=== PATIENT | female | born 1930 | race African-American/Black ===

== ENCOUNTER 2016-10-19 15:57 | Inpatient (IN) | payer MEDICARE, OTHER ==
[~2016-10-19] VITALS: Ht 157.5 cm; Wt 97.5 kg
[2016-10-19 16:13] VITALS: BP 140/80
[2016-10-19 17:15] LABS: BASOPHILS % (AUTO) 1.8 % (0.0-2.0); LYMPHOCYTES % (AUTO) 31.4 % (20.0-45.0); MEAN CORPUSCULAR HEMOGLOBIN 33.4 PG (27.0-31.0); MEAN CORPUSCULAR HGB CONC 33.3 G/DL (32.0-36.0); MEAN CORPUSCULAR VOLUME 100 FL (80-99); MEAN PLATELET VOLUME 7.1 FL (6.5-10.1); MONOCYTES % (AUTO) 11.7 % (1.0-10.0); NEUTROPHILS % (AUTO) 51.1 % (45.0-75.0); PLATELET COUNT 169 K/UL (150-450); RED BLOOD COUNT 3.16 M/UL (4.20-5.40)
[2016-10-19] MEDS ORDERED: AMLODIPINE BESY10 MG ORAL (17:23)
[2016-10-19] MEDS ORDERED: LORAZEPAM2 MG/1 M4 ORAL (17:23)
[2016-10-19] MEDS ORDERED: VITAMIN D400 INTLU ORAL (17:23)
[2016-10-19] MEDS ORDERED: DOCUSATE SODIU100 MG ORAL (17:23)
[2016-10-19] MEDS ORDERED: ATENOLOL25 MG ORAL (17:23)
[2016-10-19] MEDS ORDERED: ATORVASTATIN CA20 MG ORAL (17:23)
[2016-10-19] MEDS ORDERED: ACETAMINOPHEN325 M1 ORAL (17:23)
[2016-10-19] MEDS ORDERED: TEMAZEPAM15 MG ORAL (17:23)
[2016-10-19] MEDS ORDERED: ASPIRIN325 MG ORAL (17:23)
[2016-10-19] MEDS ORDERED: OYSCO-500500 M1 PO (17:23)
[2016-10-19] MEDS ORDERED: PANTOPRAZOLE SO40 MG ORAL (17:23)
[2016-10-19] MEDS ORDERED: ALBUTEROL2.5 MG/3 M INH (17:23)
[2016-10-19] MEDS ORDERED: DIOVAN320 MG ORAL (17:23)
[2016-10-19 17:25] LABS: TROPONIN I < 0.30 ng/mL (<=0.30)
[2016-10-19 17:26] LABS: ALANINE AMINOTRANSFERASE 15 U/L (3-33); ALBUMIN/GLOBULIN RATIO 1.2 (1.0-2.7); ANION GAP 16 (5-15); ASPARTATE AMINO TRANSFERASE 25 U/L (5-40); CALCIUM 9.5 mg/dL (8.6-10.2); CARBON DIOXIDE 23 mEQ/L (20-30); CHLORIDE 100 mEQ/L (98-107); CREATININE 1.7 mg/dL (0.5-0.9); HEMOLYSIS 65; POTASSIUM 5.3 mEQ/L (3.4-4.9); SODIUM 139 mEQ/L (135-145); TOTAL PROTEIN 7.1 g/dL (6.6-8.7)
[2016-10-19 17:36] LABS: CKMB 5.4 ng/mL (< 3.8)
[2016-10-19] MEDS ORDERED: Miralax 17gm pkt ORAL PRN (18:15)
[2016-10-19] MEDS ORDERED: Mylanta II UD 30ml ORAL PRN (18:15)
[2016-10-19] MEDS ORDERED: Morphine Sulfate 2mg/ml Inj IVP PRN (19:30)
[2016-10-19] MEDS ORDERED: DuoNeb 0.5-3(2.5)mg/3ml neb HHN PRN (19:30)
[2016-10-19] MEDS ORDERED: Sodium Polystyrene Sulfonate 15gm Powder ORAL ONE (20:30)
[2016-10-19] MEDS ORDERED: Heparin 5000 units/ml inj SUBQ SCH (21:00)
[2016-10-19] MEDS: NovoLOG Insulin Flexpen SUBQ SCH (21:00)
[2016-10-19] MEDS: Atorvastatin 20mg tab ORAL SCH (22:14)
--- NOTE | 2016-10-19 22:42 | Emergency Room Report ---
History of Present Illness General Chief Complaint: Chest Pain Source: Patient Present Illness HPI 86-year-old female presents to ED for evaluation. Per EMS report patient noted she chest pain x1 day. Patient resides in a [id number]. Patient denies any chest pain. Denies any shortness of breath. I spoke to PMD Dr. Oviedo who said that patient is here for increasing weakness and failure to thrive. Patient has very reduced appetite is not eating or drinking. No reported fevers or chills. No other aggravating or leading factors. No other associated symptoms Allergies: Coded Allergies: No Known Allergies (Verified Allergy, Unknown, 09/08/09) Patient History Past Medical History: DM, HTN Past Surgical History: none Pertinent Family History: none Social History: Denies: alcohol use, drug use, smoking Now: No Immunizations: UTD Reviewed Nursing Documentation: PMH: Agreed, PSxH: Agreed Nursing Documentation-PMH Hx Cardiac Problems: Yes Hx Hypertension: Yes Hx Pacemaker: No Hx Asthma: No Hx COPD: No Hx Diabetes: Yes Hx Cancer: No Hx Gastrointestinal Problems: No Hx Dialysis: No History Of Psychiatric Problem: No Hx Neurological Problems: No Hx Cerebrovascular Accident: No Hx Seizures: No Review of Systems All Other Systems: negative except mentioned in HPI Physical Exam Vital Signs Date Time Temp Pulse Resp B/P Pulse Ox O2 Delivery O2 Flow Rate FiO2 10/19/16 16:04 97.9 72 16 140/80 97 Room Air Sp02 EP Interpretation: reviewed, normal General Appearance: no apparent distress, non-toxic, other - dementia Head: normocephalic, atraumatic Eyes: bilateral eye PERRL, bilateral eye normal inspection ENT: hearing grossly normal, normal pharynx, no angioedema, normal voice Neck: full range of motion, supple/symm/no masses Respiratory: chest non-tender, lungs clear, normal breath sounds, speaking full sentences Cardiovascular #1: regular rate, rhythm, no edema Cardiovascular #2: 2+ carotid (R), 2+ carotid (L), 2+ radial (R), 2+ radial (L) , 2+ dorsalis pedis (R), 2+ dorsalis pedis (L) Gastrointestinal: normal bowel sounds, non tender, soft, non-distended, no guarding, no rebound Rectal: deferred Genitourinary: normal inspection, no CVA tenderness Musculoskeletal: back normal, gait/station normal, normal range of motion, non- tender, calf tenderness Neurologic: responsive, motor strength/tone normal, sensory intact, speech normal, other - dementia Psychiatric: other - dementia Reflexes: 3+ bicep (R), 3+ bicep (L), 3+ tricep (R), 3+ tricep (L), 3+ knee (R) , 3+ knee (L) Skin: normal color, no rash, warm/dry, well hydrated Lymphatic: no adenopathy Medical Decision Making Diagnostic Impression: Primary Impression: weakness, FTT Additional Impressions: ARF (acute renal failure) Qualified Codes: N17.9 - Acute kidney failure, unspecified Dehydration ER Course Hospital Course 86-year-old female presenting to ED with generalized weakness, h/o dementia Differential diagnoses include: Pneumonia, UTI, sepsis, dehydration, VT/ unstable angina, failure to thrive Clinical course Patient placed on stretcher. On substance abuse clinician with tachycardia. After initial history and physical, I ordered labs, IV fluids, EKG, chest x-ray, blood cultures, UA. Labs - no leukocytosis, hb/hct stable, BUN/Cr elevated, K 5.3, trop negative EKG - PACS, no acute ischemic changes CXR - no acute process, cardiomegaly Patient has dementia. Patient got out of bed and fell. Unwitnessed. Unclear patient hit her head CT head negative Case discussed with Dr Oviedo and they agreed to admit patient to their service for further care and support I feel this is a highly complex case requiring extensive working including EKG/ Rhythm strip, Xray/CT/US, Blood/urine lab work, repeat exams while in ED, and administration of strong opiates/narcotics for pain control, admission to hospital or close patient follow up. Diagnosis - failure to thrive, weakness, ARF, dehydration Patient admitted to floor in serious condition Labs Test 10/19/16 16:30 White Blood Count 5.0 K/UL (4.8-10.8) Red Blood Count 3.16 M/UL (4.20-5.40) Hemoglobin 10.6 G/DL (12.0-16.0) Hematocrit 31.7 % (37.0-47.0) Mean Corpuscular Volume 100 FL (80-99) Mean Corpuscular Hemoglobin 33.4 PG (27.0-31.0) Mean Corpuscular Hemoglobin Concent 33.3 G/DL (32.0-36.0) Red Cell Distribution Width 13.0 % (11.6-14.8) Platelet Count 169 K/UL (150-450) Mean Platelet Volume 7.1 FL (6.5-10.1) Neutrophils (%) (Auto) 51.1 % (45.0-75.0) Lymphocytes (%) (Auto) 31.4 % (20.0-45.0) Monocytes (%) (Auto) 11.7 % (1.0-10.0) Eosinophils (%) (Auto) 4.0 % (0.0-3.0) Basophils (%) (Auto) 1.8 % (0.0-2.0) Sodium Level 139 mEQ/L (135-145) Potassium Level 5.3 mEQ/L (3.4-4.9) Chloride Level 100 mEQ/L (98-107) Carbon Dioxide Level 23 mEQ/L (20-30) Anion Gap 16 (5-15) Blood Urea Nitrogen 41 mg/dL (7-23) Creatinine 1.7 mg/dL (0.5-0.9) Estimat Glomerular Filtration Rate mL/min (>60) Glucose Level 102 mg/dL (74-106) Calcium Level 9.5 mg/dL (8.6-10.2) Total Bilirubin < 0.2 mg/dL (0.0-1.2) Aspartate Amino Transf (AST/SGOT) 25 U/L (5-40) Alanine Aminotransferase (ALT/SGPT) 15 U/L (3-33) Alkaline Phosphatase 56 U/L (35-104) Total Creatine Kinase 170 U/L (26-140) Creatine Kinase MB 5.4 ng/mL (< 3.8) Creatine Kinase MB Relative Index 3.1 Troponin I < 0.30 ng/mL (<=0.30) Pro-B-Type Natriuretic Peptide 325 pg/mL (0-450) Total Protein 7.1 g/dL (6.6-8.7) Albumin 3.9 g/dL (3.5-5.2) Globulin 3.2 g/dL Albumin/Globulin Ratio 1.2 (1.0-2.7) EKG Diagnostic Results Rate: normal Rhythm: NSR ST Segments: other - bigeminy ASA given to the pt in ED: No Rhythm Strip Diag. Results EP Interpretation: yes Rhythm: NSR, no ectopy, other - PACs Chest X-Ray Diagnostic Results EP Interpretation: No Findings: no consolidation, no effusion, no pneumothorax, no acute cardiopulmonary disease, other - cardiomegaly Number of Views: 1 CT/MRI/US Diagnostic Results CT/MRI/US Diagnostic Results : Imaging Test Ordered: CT Head Impression no acute process Last Vital Signs Date Time Temp Pulse Resp B/P Pulse Ox O2 Delivery O2 Flow Rate FiO2 10/19/16 19:13 97.9 16 168/61 97 Room Air 10/19/16 16:13 72 Status: improved Disposition: ADMITTED INPATIENT Condition: Serious Referrals: ANTON OVIEDO (PCP) SAIMA GARCIA M.D. October 19, 2016 22:41
[2016-10-20] VITALS: BP 153/83
[2016-10-20] MEDS: Zolpidem 5mg tab ORAL PRN (02:08)
[2016-10-20 04:00] VITALS: BP 155/61
[2016-10-20] MEDS: NovoLOG Insulin Flexpen SUBQ SCH ×4 (06:20→21:00)
[2016-10-20 07:12] LABS: BASOPHILS % (AUTO) 1.9 % (0.0-2.0); EOSINOPHILS % (AUTO) 4.8 % (0.0-3.0); LYMPHOCYTES % (AUTO) 26.9 % (20.0-45.0); MEAN CORPUSCULAR HEMOGLOBIN 31.8 PG (27.0-31.0); MEAN CORPUSCULAR HGB CONC 32.1 G/DL (32.0-36.0); MEAN CORPUSCULAR VOLUME 99 FL (80-99); MEAN PLATELET VOLUME 9.5 FL (6.5-10.1); MONOCYTES % (AUTO) 13.4 % (1.0-10.0); PLATELET COUNT 181 K/UL (150-450); RED BLOOD COUNT 3.01 M/UL (4.20-5.40); RED CELL DISTRIBUTION WIDTH 12.7 % (11.6-14.8)
[2016-10-20 07:47] LABS: HEMOGLOBIN A1C 5.9 % (< 6.0)
[2016-10-20 08:00] VITALS: BP 150/61
[2016-10-20 08:12] LABS: ALANINE AMINOTRANSFERASE 15 U/L (3-33); ALBUMIN/GLOBULIN RATIO 1.3 (1.0-2.7); ANION GAP 14 (5-15); ASPARTATE AMINO TRANSFERASE 20 U/L (5-40); CALCIUM 9.3 mg/dL (8.6-10.2); CARBON DIOXIDE 25 mEQ/L (20-30); CHLORIDE 101 mEQ/L (98-107); CHOLESTEROL 244 mg/dL (< 200); CHOLESTEROL/HDL RATIO 2.6 (3.3-4.4); CREATININE 1.4 mg/dL (0.5-0.9); HEMOLYSIS 4; LDL CHOLESTEROL (CALC.) 138 mg/dL (60-99); POTASSIUM 4.1 mEQ/L (3.4-4.9); SODIUM 140 mEQ/L (135-145); TOTAL PROTEIN 6.5 g/dL (6.6-8.7)
--- NOTE | 2016-10-20 11:26 | Diagnostic Imaging Report ---
Indication: Headache. Head Trauma Technique: Contiguous 5 mm thick transaxial imaging of the head obtained in a Siemens Sensation [address] scanner. Soft tissue and bone windows generated. Total Dose length Product (DLP): [address] Dose Index Volume (CTDIvol): 70.38 mGy Comparison: none Findings: There is mild prominence of the ventricles, basal cisterns, and cerebral sulci consistent with atrophy. Mild, nonspecific, white matter hypoattenuation is noted throughout the brain consistent with chronic small vessel disease. There is no midline shift, edema, acute hemorrhage, mass effect, or abnormal extra-axial fluid collections. Bones and extra osseous soft tissues are unremarkable. Impression: No acute intracranial bleed, mass effect or edema. Mild atrophy of the brain. Nonspecific white matter hypoattenuation probably due to chronic small vessel disease. The CT scanner at [facility] is accredited by the [employer] and the scans are performed using dose optimization techniques as appropriate to a performed exam including Automatic Exposure control.
--- NOTE | 2016-10-20 11:28 | Diagnostic Imaging Report ---
Indications: Chest pain Technique: Portable AP chest Findings: Comparison: 10/10/2010 Inspiratory effort has decreased. Size of the cardiac silhouette has apparently increased. Mild pulmonary vascular redistribution and bilateral interstitial prominence now suggested. No pleural abnormality evident. Aortic arch calcification unchanged. IMPRESSION: Findings suggest development of mild congestive heart failure. Some of these changes may be technical, however.
[2016-10-20 12:00] VITALS: BP 141/80
--- NOTE | 2016-10-20 14:59 | History and Physical ---
History of Present Illness General Date patient seen: October 20, 2016 Reason for Hospitalization: Chest Pain Present Illness HPI 86-year-old female with hx of schizophrenia, Dementia, DM presents to ED for evaluation of increasing weakness and failure to thrive. Patient has very reduced appetite is not eating or drinking. No reported fevers or chills. No other aggravating or leading factors. she was diagnosed to have acute renal failure and anemia and admitted for further evaluation. Allergies: Coded Allergies: No Known Allergies (Verified Allergy, Unknown, 09/08/09) Medication History Scheduled Amlodipine Besylate* (Amlodipine Besylate*), 10 MG ORAL DAILY, (Reported) Aspirin* (Aspirin*), 325 MG ORAL DAILY, (Reported) Atenolol* (Tenormin*), 25 MG ORAL DAILY, (Reported) Atorvastatin Calcium* (Atorvastatin Calcium*), 20 MG ORAL BEDTIME, (Reported) Docusate Sodium* (Docusate Sodium*), 100 MG ORAL THREE TIMES A DAY, (Reported) Lorazepam (Lorazepam), 1 MG ORAL THREE TIMES A DAY, (Reported) Pantoprazole* (Pantoprazole*), 40 MG ORAL DAILY, (Reported) Temazepam (Temazepam*), 15 MG ORAL BEDTIME, (Reported) Valsartan (Diovan), 320 MG ORAL DAILY, (Reported) Vitamin D (Vitamin D3), 400 UNITS ORAL DAILY, (Reported) Scheduled PRN Acetaminophen* (Acetaminophen 325MG Tablet*), 650 MG ORAL Q4H PRN for For Pain, (Reported) Albuterol Sulfate* (Albuterol Sulfate Hhn*), 3 ML INH Q4H PRN for Shortness of Breath, (Reported) Miscellaneous Medications Calcium Carbonate (Oysco-500), 500 MG PO, (Reported) Patient History Healthcare decision maker pt A&Ox1 Resuscitation status Full Code Advanced Directive on File Past Medical/Surgical History Past Medical/Surgical History: (1) Dementia (2) Schizophrenia (3) Diabetes Review of Systems All Other Systems: negative except mentioned in HPI Physical Exam General Appearance: WD/WN Lines, tubes and drains: peripheral HEENT: normocephalic, atraumatic Neck: non-tender, normal alignment Respiratory/Chest: chest wall non-tender, lungs clear Cardiovascular/Chest: normal peripheral pulses, normal rate Abdomen: normal bowel sounds, non tender Genitourinary/Rectal: normal genital exam Extremities: normal range of motion, non-tender Neurologic: peripheral vascular tech II-XII grossly normal Last 24 Hour Vital Signs Date Time Temp Pulse Resp B/P Pulse Ox O2 Delivery O2 Flow Rate FiO2 10/20/16 12:00 98.2 62 18 141/80 98 Room Air 10/20/16 11:00 57 150/61 10/20/16 08:00 98.1 57 18 150/61 93 Room Air 10/20/16 07:00 60 18 Room Air 10/20/16 04:01 95 10/20/16 04:00 98.2 64 18 155/61 Room Air 10/20/16 00:00 97.7 63 17 153/83 85 Room Air 10/19/16 19:13 97.9 16 168/61 97 Room Air 10/19/16 16:13 72 16 Room Air 10/19/16 16:13 97.9 16 140/80 97 Room Air 10/19/16 16:04 97.9 72 16 140/80 97 Room Air Intake and Output 10/19/16 10/20/16 19:00 07:00 Intake Total 0 ml 675 ml Balance 0 ml 675 ml Intake Oral 0 ml IV Total 675 ml # Voids 4 Laboratory Tests Test 10/19/16 16:30 10/20/16 05:15 White Blood Count 5.0 K/UL (4.8-10.8) 4.0 K/UL (4.8-10.8) L Red Blood Count 3.16 M/UL (4.20-5.40) L 3.01 M/UL (4.20-5.40) L Hemoglobin 10.6 G/DL (12.0-16.0) L 9.6 G/DL (12.0-16.0) L Hematocrit 31.7 % (37.0-47.0) L 29.8 % (37.0-47.0) L Mean Corpuscular Volume 100 FL (80-99) H 99 FL (80-99) Mean Corpuscular Hemoglobin 33.4 PG (27.0-31.0) H 31.8 PG (27.0-31.0) H Mean Corpuscular Hemoglobin Concent 33.3 G/DL (32.0-36.0) 32.1 G/DL (32.0-36.0) Red Cell Distribution Width 13.0 % (11.6-14.8) 12.7 % (11.6-14.8) Platelet Count 169 K/UL (150-450) 181 K/UL (150-450) Mean Platelet Volume 7.1 FL (6.5-10.1) 9.5 FL (6.5-10.1) Neutrophils (%) (Auto) 51.1 % (45.0-75.0) 53.0 % (45.0-75.0) Lymphocytes (%) (Auto) 31.4 % (20.0-45.0) 26.9 % (20.0-45.0) Monocytes (%) (Auto) 11.7 % (1.0-10.0) H 13.4 % (1.0-10.0) H Eosinophils (%) (Auto) 4.0 % (0.0-3.0) H 4.8 % (0.0-3.0) H Basophils (%) (Auto) 1.8 % (0.0-2.0) 1.9 % (0.0-2.0) Sodium Level 139 mEQ/L (135-145) 140 mEQ/L (135-145) Potassium Level 5.3 mEQ/L (3.4-4.9) H 4.1 mEQ/L (3.4-4.9) Chloride Level 100 mEQ/L (98-107) 101 mEQ/L (98-107) Carbon Dioxide Level 23 mEQ/L (20-30) 25 mEQ/L (20-30) Anion Gap 16 (5-15) H 14 (5-15) Blood Urea Nitrogen 41 mg/dL (7-23) H 28 mg/dL (7-23) H Creatinine 1.7 mg/dL (0.5-0.9) H 1.4 mg/dL (0.5-0.9) H Estimat Glomerular Filtration Rate mL/min (>60) mL/min (>60) Glucose Level 102 mg/dL (74-106) 93 mg/dL (74-106) Calcium Level 9.5 mg/dL (8.6-10.2) 9.3 mg/dL (8.6-10.2) Total Bilirubin < 0.2 mg/dL (0.0-1.2) 0.2 mg/dL (0.0-1.2) Aspartate Amino Transf (AST/SGOT) 25 U/L (5-40) 20 U/L (5-40) Alanine Aminotransferase (ALT/SGPT) 15 U/L (3-33) 15 U/L (3-33) Alkaline Phosphatase 56 U/L (35-104) 55 U/L (35-104) Total Creatine Kinase 170 U/L (26-140) H Creatine Kinase MB 5.4 ng/mL (< 3.8) H Creatine Kinase MB Relative Index 3.1 Troponin I < 0.30 ng/mL (<=0.30) Pro-B-Type Natriuretic Peptide 325 pg/mL (0-450) Total Protein 7.1 g/dL (6.6-8.7) 6.5 g/dL (6.6-8.7) L Albumin 3.9 g/dL (3.5-5.2) 3.7 g/dL (3.5-5.2) Globulin 3.2 g/dL 2.8 g/dL Albumin/Globulin Ratio 1.2 (1.0-2.7) 1.3 (1.0-2.7) Hemoglobin A1c 5.9 % (< 6.0) Triglycerides Level 62 mg/dL (< 150) Cholesterol Level 244 mg/dL (< 200) H LDL Cholesterol 138 mg/dL (60-99) H HDL Cholesterol 94 mg/dL (> 60) H Cholesterol/HDL Ratio 2.6 (3.3-4.4) L Thyroid Stimulating Hormone (TSH) 1.110 uIU/mL (0.300-4.500) Height (Feet): 5 Height (Inches): 2.00 Weight (Pounds): 215 Medications Current Medications Medications (Trade) Dose Ordered Sig/Pierre Route PRN Reason Start Time Stop Time Status Last Admin Dose Admin Acetaminophen (Tylenol) 650 mg Q4H PRN ORAL fever 10/19/16 18:15 11/18/16 18:14 Al Hydroxide/Mg Hydroxide (Mylanta II) 30 ml Q6H PRN ORAL dyspepsia 10/19/16 18:15 11/18/16 18:14 Albuterol/ Ipratropium (DuoNeb 0.5-3(2.5)mg/3ml) 3 ml Q6H PRN HHN dyspnea 10/19/16 19:30 10/24/16 19:29 Amlodipine Besylate (Norvasc) 10 mg DAILY ORAL 10/20/16 09:00 11/19/16 08:59 10/20/16 11:00 Aspirin (ASA) 325 mg DAILY ORAL 10/20/16 09:00 11/19/16 08:59 10/20/16 11:00 Atorvastatin Calcium (Lipitor) 20 mg BEDTIME ORAL 10/19/16 21:00 11/18/16 20:59 10/19/16 22:14 Calcium Carbonate (Os-Giovany) 1,250 mg DAILY ORAL 10/20/16 09:00 11/19/16 08:59 10/20/16 11:00 Clonidine HCl (Catapres) 0.1 mg Q4H PRN ORAL SBP > 160 10/19/16 18:15 11/18/16 18:14 Dextrose (Dextrose 50%) STAT PRN IV Hypoglycemia 10/19/16 18:15 11/18/16 18:14 Heparin Sodium (Porcine) (Heparin 5000 units/ml) 5,000 units EVERY 12 HOURS SUBQ 10/19/16 21:00 11/18/16 20:59 Future Hold Insulin Aspart (NovoLOG) BEFORE MEALS AND HS SUBQ 10/19/16 21:00 11/18/16 20:59 Morphine Sulfate (Morphine Sulfate) 1 mg Q4H PRN IVP For Pain 10/19/16 19:30 10/26/16 19:29 Ondansetron HCl (Zofran) 4 mg Q6H PRN IVP Nausea & Vomiting 10/19/16 18:15 11/18/16 18:14 Polyethylene Glycol (Miralax) 17 gm HSPRN PRN ORAL Constipation 10/19/16 18:15 11/18/16 18:14 Risperidone (RisperDAL) 1 mg Q6H PRN ORAL Agitation 10/19/16 21:15 11/18/16 21:14 Risperidone (RisperDAL) 2 mg BEDTIME ORAL 10/20/16 22:00 11/19/16 21:59 Zolpidem Tartrate (Ambien) 5 mg HSPRN PRN ORAL Insomnia 10/19/16 18:15 11/18/16 18:14 10/20/16 02:08 Assessment/Plan Problem List: (1) ATN (acute tubular necrosis) ICD Codes: N17.0 - Acute kidney failure with tubular necrosis SNOMED: 52406835 (2) Severe anemia ICD Codes: D64.9 - Anemia, unspecified SNOMED: 458151874 (3) Dementia ICD Codes: F03.90 - Unspecified dementia without behavioral disturbance SNOMED: 14578118 (4) Diabetes ICD Codes: E11.9 - Type 2 diabetes mellitus without complications SNOMED: 29943426 (5) Schizophrenia ICD Codes: F20.9 - Schizophrenia, unspecified SNOMED: 73268309 Assessment/Plan IV fluids renal evaluation anemia w/u pt/ot calorie count psych evaluation ANTON BYRD October 20, 2016 14:59
[2016-10-20 16:00] VITALS: BP 141/53
--- NOTE | 2016-10-20 17:57 | Neurology Progress Note ---
Interim History Interim History ROS Limited/Unobtainable: Yes Objective Physical Exam Last Vital Signs Date Time Temp Pulse Resp B/P Pulse Ox O2 Delivery O2 Flow Rate FiO2 10/20/16 16:00 98.4 64 18 141/53 99 Room Air Laboratory Tests Test 10/20/16 05:15 White Blood Count 4.0 K/UL (4.8-10.8) L Red Blood Count 3.01 M/UL (4.20-5.40) L Hemoglobin 9.6 G/DL (12.0-16.0) L Hematocrit 29.8 % (37.0-47.0) L Mean Corpuscular Volume 99 FL (80-99) Mean Corpuscular Hemoglobin 31.8 PG (27.0-31.0) H Mean Corpuscular Hemoglobin Concent 32.1 G/DL (32.0-36.0) Red Cell Distribution Width 12.7 % (11.6-14.8) Platelet Count 181 K/UL (150-450) Mean Platelet Volume 9.5 FL (6.5-10.1) Neutrophils (%) (Auto) 53.0 % (45.0-75.0) Lymphocytes (%) (Auto) 26.9 % (20.0-45.0) Monocytes (%) (Auto) 13.4 % (1.0-10.0) H Eosinophils (%) (Auto) 4.8 % (0.0-3.0) H Basophils (%) (Auto) 1.9 % (0.0-2.0) Sodium Level 140 mEQ/L (135-145) Potassium Level 4.1 mEQ/L (3.4-4.9) Chloride Level 101 mEQ/L (98-107) Carbon Dioxide Level 25 mEQ/L (20-30) Anion Gap 14 (5-15) Blood Urea Nitrogen 28 mg/dL (7-23) H Creatinine 1.4 mg/dL (0.5-0.9) H Estimat Glomerular Filtration Rate mL/min (>60) Glucose Level 93 mg/dL (74-106) Hemoglobin A1c 5.9 % (< 6.0) Calcium Level 9.3 mg/dL (8.6-10.2) Total Bilirubin 0.2 mg/dL (0.0-1.2) Aspartate Amino Transf (AST/SGOT) 20 U/L (5-40) Alanine Aminotransferase (ALT/SGPT) 15 U/L (3-33) Alkaline Phosphatase 55 U/L (35-104) Total Protein 6.5 g/dL (6.6-8.7) L Albumin 3.7 g/dL (3.5-5.2) Globulin 2.8 g/dL Albumin/Globulin Ratio 1.3 (1.0-2.7) Triglycerides Level 62 mg/dL (< 150) Cholesterol Level 244 mg/dL (< 200) H LDL Cholesterol 138 mg/dL (60-99) H HDL Cholesterol 94 mg/dL (> 60) H Cholesterol/HDL Ratio 2.6 (3.3-4.4) L Thyroid Stimulating Hormone (TSH) 1.110 uIU/mL (0.300-4.500) Impression/Recommendations Problems: (1) Dementia arising in the senium and presenium (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
[2016-10-20 19:24] VITALS: BP 154/61
[2016-10-20] MEDS: Atorvastatin 20mg tab ORAL SCH (21:30)
--- NOTE | 2016-10-20 23:00 | Consultation ---
History of Present Illness General Chief Complaint: Chest Pain Present Illness HPI 86-year-old female with hx of schizophrenia, Dementia, DM presents to ED for evaluation of increasing weakness and failure to thrive. im well familiar with this pt the pt is declined and is more disorganized and agitated. Allergies: Coded Allergies: No Known Allergies (Verified Allergy, Unknown, 09/08/09) Medication History Scheduled Amlodipine Besylate* (Amlodipine Besylate*), 10 MG ORAL DAILY, (Reported) Aspirin* (Aspirin*), 325 MG ORAL DAILY, (Reported) Atenolol* (Tenormin*), 25 MG ORAL DAILY, (Reported) Atorvastatin Calcium* (Atorvastatin Calcium*), 20 MG ORAL BEDTIME, (Reported) Docusate Sodium* (Docusate Sodium*), 100 MG ORAL THREE TIMES A DAY, (Reported) Lorazepam (Lorazepam), 1 MG ORAL THREE TIMES A DAY, (Reported) Pantoprazole* (Pantoprazole*), 40 MG ORAL DAILY, (Reported) Temazepam (Temazepam*), 15 MG ORAL BEDTIME, (Reported) Valsartan (Diovan), 320 MG ORAL DAILY, (Reported) Vitamin D (Vitamin D3), 400 UNITS ORAL DAILY, (Reported) Scheduled PRN Acetaminophen* (Acetaminophen 325MG Tablet*), 650 MG ORAL Q4H PRN for For Pain, (Reported) Albuterol Sulfate* (Albuterol Sulfate Hhn*), 3 ML INH Q4H PRN for Shortness of Breath, (Reported) Miscellaneous Medications Calcium Carbonate (Oysco-500), 500 MG PO, (Reported) Patient History Limited by: medical condition History Provided By: Patient, Medical Record, PMD Healthcare decision maker pt A&Ox1 Resuscitation status Full Code Advanced Directive on File Past Medical/Surgical History Past Medical/Surgical History: (1) Dehydration (2) ARF (acute renal failure) (3) Dementia (4) Diabetes (5) Schizophrenia (6) ATN (acute tubular necrosis) (7) Severe anemia (8) Dementia arising in the senium and presenium (9) Gait apraxia of elderly Review of Systems Constitutional: Reports: weakness Psychiatric: Reports: anxiety, depressed feelings, emotional problems, hallucinations, prior hx Physical Exam General Appearance: alert, confused, agitated Neurologic: alert, disoriented, depressed affect Last 24 Hour Vital Signs Date Time Temp Pulse Resp B/P Pulse Ox O2 Delivery O2 Flow Rate FiO2 10/20/16 20:40 75 18 Room Air 10/20/16 19:24 98.2 64 19 154/61 92 Room Air 10/20/16 16:00 98.4 64 18 141/53 99 Room Air 10/20/16 12:00 98.2 62 18 141/80 98 Room Air 10/20/16 11:00 57 150/61 10/20/16 08:00 98.1 57 18 150/61 93 Room Air 10/20/16 07:00 60 18 Room Air 10/20/16 04:01 95 10/20/16 04:00 98.2 64 18 155/61 Room Air 10/20/16 00:00 97.7 63 17 153/83 85 Room Air Intake and Output 10/19/16 10/20/16 19:00 07:00 Intake Total 0 ml 675 ml Balance 0 ml 675 ml Intake Oral 0 ml IV Total 675 ml # Voids 4 Laboratory Tests Test 10/20/16 05:15 White Blood Count 4.0 K/UL (4.8-10.8) L Red Blood Count 3.01 M/UL (4.20-5.40) L Hemoglobin 9.6 G/DL (12.0-16.0) L Hematocrit 29.8 % (37.0-47.0) L Mean Corpuscular Volume 99 FL (80-99) Mean Corpuscular Hemoglobin 31.8 PG (27.0-31.0) H Mean Corpuscular Hemoglobin Concent 32.1 G/DL (32.0-36.0) Red Cell Distribution Width 12.7 % (11.6-14.8) Platelet Count 181 K/UL (150-450) Mean Platelet Volume 9.5 FL (6.5-10.1) Neutrophils (%) (Auto) 53.0 % (45.0-75.0) Lymphocytes (%) (Auto) 26.9 % (20.0-45.0) Monocytes (%) (Auto) 13.4 % (1.0-10.0) H Eosinophils (%) (Auto) 4.8 % (0.0-3.0) H Basophils (%) (Auto) 1.9 % (0.0-2.0) Sodium Level 140 mEQ/L (135-145) Potassium Level 4.1 mEQ/L (3.4-4.9) Chloride Level 101 mEQ/L (98-107) Carbon Dioxide Level 25 mEQ/L (20-30) Anion Gap 14 (5-15) Blood Urea Nitrogen 28 mg/dL (7-23) H Creatinine 1.4 mg/dL (0.5-0.9) H Estimat Glomerular Filtration Rate mL/min (>60) Glucose Level 93 mg/dL (74-106) Hemoglobin A1c 5.9 % (< 6.0) Calcium Level 9.3 mg/dL (8.6-10.2) Total Bilirubin 0.2 mg/dL (0.0-1.2) Aspartate Amino Transf (AST/SGOT) 20 U/L (5-40) Alanine Aminotransferase (ALT/SGPT) 15 U/L (3-33) Alkaline Phosphatase 55 U/L (35-104) Total Protein 6.5 g/dL (6.6-8.7) L Albumin 3.7 g/dL (3.5-5.2) Globulin 2.8 g/dL Albumin/Globulin Ratio 1.3 (1.0-2.7) Triglycerides Level 62 mg/dL (< 150) Cholesterol Level 244 mg/dL (< 200) H LDL Cholesterol 138 mg/dL (60-99) H HDL Cholesterol 94 mg/dL (> 60) H Cholesterol/HDL Ratio 2.6 (3.3-4.4) L Thyroid Stimulating Hormone (TSH) 1.110 uIU/mL (0.300-4.500) Height (Feet): 5 Height (Inches): 2.00 Weight (Pounds): 215 Medications Current Medications Medications (Trade) Dose Ordered Sig/Pierre Route PRN Reason Start Time Stop Time Status Last Admin Dose Admin Acetaminophen (Tylenol) 650 mg Q4H PRN ORAL fever 10/19/16 18:15 6 18:14 Al Hydroxide/Mg Hydroxide (Mylanta II) 30 ml Q6H PRN ORAL dyspepsia 10/19/16 18:15 617 18:14 Albuterol/ Ipratropium (DuoNeb 0.5-3(2.5)mg/3ml) 3 ml Q6H PRN HHN dyspnea 10/19/16 19:30 10/24/16 19:29 Amlodipine Besylate (Norvasc) 10 mg DAILY ORAL 10/20/16 09:00 11/19/16 08:59 10/20/16 11:00 Aspirin (ASA) 325 mg DAILY ORAL 10/20/16 09:00 11/19/16 08:59 10/20/16 11:00 Atorvastatin Calcium (Lipitor) 20 mg BEDTIME ORAL 10/19/16 21:00 11/18/16 20:59 10/20/16 21:30 Calcium Carbonate (Os-Giovany) 1,250 mg DAILY ORAL 10/20/16 09:00 11/19/16 08:59 10/20/16 11:00 Clonidine HCl (Catapres) 0.1 mg Q4H PRN ORAL SBP > 160 10/19/16 18:15 11/18/16 18:14 Dextrose (Dextrose 50%) STAT PRN IV Hypoglycemia 10/19/16 18:15 11/18/16 18:14 Heparin Sodium (Porcine) (Heparin 5000 units/ml) 5,000 units EVERY 12 HOURS SUBQ 10/19/16 21:00 11/18/16 20:59 Future Hold Insulin Aspart (NovoLOG) BEFORE MEALS AND HS SUBQ 10/19/16 21:00 11/18/16 20:59 10/20/16 17:49 Morphine Sulfate (Morphine Sulfate) 1 mg Q4H PRN IVP For Pain 10/19/16 19:30 10/26/16 19:29 Ondansetron HCl (Zofran) 4 mg Q6H PRN IVP Nausea & Vomiting 10/19/16 18:15 11/18/16 18:14 Polyethylene Glycol (Miralax) 17 gm HSPRN PRN ORAL Constipation 10/19/16 18:15 11/18/16 18:14 Risperidone (RisperDAL) 1 mg Q6H PRN ORAL Agitation 10/19/16 21:15 11/18/16 21:14 Risperidone (RisperDAL) 2 mg BEDTIME ORAL 10/20/16 22:00 11/19/16 21:59 10/20/16 21:28 Zolpidem Tartrate (Ambien) 5 mg HSPRN PRN ORAL Insomnia 10/19/16 18:15 11/18/16 18:14 10/20/16 02:08 Assessment/Plan Status: not improved Assessment/Plan Schizophrenia -risperdal 2mg hs -risperdal Fan Starks M.D. October 20, 2016 23:00
--- NOTE | 2016-10-21 00:01 | Consultation ---
DATE OF CONSULTATION: 10/20/2016 NEUROLOGICAL CONSULTATION REQUESTING PHYSICIAN: Lalito Oviedo M.D. HISTORY OF PRESENT ILLNESS: The patient is an 86-year-old female, resident of assisted living facility, who was brought to this hospital for progressive difficulty in ambulation, generalized weakness, and failure to thrive. On admission, her vital signs were stable. She was afebrile. Her initial assessment included CAT scan of the brain without contrast, which revealed a mild diffuse atrophy, nonspecific white matter hypoattenuation due to chronic small vessel disease. Chest x-ray, mild CHF. Laboratory work included a CBC study with hemoglobin 10.6, hematocrit 31.7, elevated MCV and MCH. Chemistry panel, abnormal cholesterol 244, LDL 138, CK 170, CK-MB 5.4, and creatinine 1.7 with BUN of 41, and potassium 5.3. Since admission till present, there was no paroxysmal event. The patient remained in stable condition. PAST MEDICAL HISTORY: The patient has a history of senile dementia, chronic renal failure, chronic anemia, history of hyperlipidemia. MEDICATIONS: The patient's treatment included amlodipine, aspirin, atenolol, atorvastatin, lorazepam, pantoprazole, temazepam, losartan, vitamin D level, as needed Tylenol or albuterol. ALLERGIES: Not reported. SOCIAL HISTORY: Resident of a nursing facility. FAMILY HISTORY: Unavailable. REVIEW OF SYMPTOMS: The patient is unaware of any medical problems. She is unable to describe the reason for hospitalization. PHYSICAL EXAMINATION: GENERAL: Well-developed, well-nourished, elderly female, not in acute distress, lying comfortably in bed asleep, but easily arousable. VITAL SIGNS: Blood pressure 138/90 and respirations 18. HEENT: Head, normocephalic. No evidence of injuries. Eyes, ears, and throat are clear. NECK: Supple. No meningeal signs. MUSCULOSKELETAL EXAMINATION: Unremarkable with no deformities. Peripheral pulses 1+ symmetric. MENTAL STATUS: The patient is alert and oriented to her name only stating her age is 62, and she lives here. She has no recollection of any medical problems, but pleasant and cooperative. CRANIAL NERVE II: Pupils are both responding to light and accommodation. Extraocular movement intact. No nystagmus. CRANIAL NERVE V: Normal corneal responses. CRANIAL NERVE VII: No facial asymmetry. CRANIAL NERVE VIII: Slight decrease in hearing. CRANIAL NERVES IX THROUGH XII: Tongue is in midline. Symmetric palate elevation. MOTOR EXAMINATION: Normal muscle tone. Strength is 5/5 in all extremities. Deep tendon reflexes 1+ symmetric with downgoing toes both sides. SENSORY EXAMINATION: Normal to pin stimulation. Gait is unstable requires assistance. IMPRESSION: 1. This is an 86-year-old female with progressive ischemic cerebrovascular disease presenting with abnormal gait, and evidence of vascular dementia. 2. Hypertension. 3. Hyperlipidemia. 4. Renal insufficiency. 5. Chronic anemia. RECOMMENDATION: 1. The patient is to continue with aspirin. Avoid over sedation with lorazepam or temazepam. 2. Start on Aricept 5 mg daily. Continue with PT and OT and daily ambulation. 3. Recheck B12, folate, and ammonia level. Thank you for allowing me to see this interesting patient in neurological consultation. Shawn Marino M.D. DR: OSMIN JOB#: [id number] CC:
[2016-10-21 00:48] VITALS: BP 143/69
[2016-10-21 04:00] VITALS: BP 129/75
[2016-10-21] MEDS: NovoLOG Insulin Flexpen SUBQ SCH ×4 (06:17→20:31)
[2016-10-21 06:37] LABS: BASOPHILS % (AUTO) 1.3 % (0.0-2.0); EOSINOPHILS % (AUTO) 4.4 % (0.0-3.0); LYMPHOCYTES % (AUTO) 32.3 % (20.0-45.0); MEAN CORPUSCULAR HEMOGLOBIN 31.1 PG (27.0-31.0); MEAN CORPUSCULAR HGB CONC 31.6 G/DL (32.0-36.0); MEAN CORPUSCULAR VOLUME 99 FL (80-99); MONOCYTES % (AUTO) 12.2 % (1.0-10.0); NEUTROPHILS % (AUTO) 49.8 % (45.0-75.0); PLATELET COUNT 192 K/UL (150-450); RED BLOOD COUNT 3.17 M/UL (4.20-5.40); RED CELL DISTRIBUTION WIDTH 13.1 % (11.6-14.8); WHITE BLOOD COUNT 4.3 K/UL (4.8-10.8)
[2016-10-21 06:43] LABS: INR 1.1 (0.9-1.1); PROTHROMBIN TIME 11.3 SEC (9.30-11.50)
[2016-10-21 08:00] VITALS: BP 130/68
[2016-10-21 08:49] LABS: ERYTHROCYTE SEDIMENTATION RATE 45 MM/HR (0-42); PATH BLOOD SMEAR/OMC SENT TO PATHOLOGIST
[2016-10-21 09:39] LABS: BAND NEUTROPHILS % (MANUAL) 0 % (0-8); BASOPHILS % (MANUAL) 0 % (0-2); EOSINOPHILS % (MANUAL) 1 % (0-3); HYPOCHROMASIA 1+; LYMPHOCYTES % (MANUAL) 35 % (20-45); MACROCYTES 1+; NEUTROPHILS % (MANUAL) 52 % (45-75); PLATELET ESTIMATE ADEQUATE; PLATELET MORPHOLOGY NORMAL; TOTAL CELLS COUNTED 100
[2016-10-21 09:56] LABS: RETICULOCYTE COUNT 0.4 % (0.0-2.0)
[2016-10-21 12:00] VITALS: BP 141/70
--- NOTE | 2016-10-21 13:12 | Pulmonology Progress Note ---
Assessment/Plan Assessment/Plan ASSESSMENT ATN anemia of chronic disease DM progressive ischemic cerebrovascular disease vascular dementia HTN Hyperlipidemia Hyperkalemia-s/p Rx moderate pulmonary HTN diastolic dysfunction PLAN OF CARE MS floor sitter at the bedside CT head negative neuro eval noted and appreciated B12, TSH WNL, folate and ammonia pending PT/OT ambulate fall precautions per neuro limit sedation nephro follows creat down to 1.4, likely prerenal due to dehydration ( s/p IVF) continue ASA lipid panel with elevated TC and LDL, elevated CK, will hold on statin for now BP management with CCB, stable CXR with mild CHF, pro BNP -325 last ECHO with EF 70% and RVSP of 42 c/w moderate pulmonary HTN, evidence of significant diastolic dysfunction, K stable after Rx DVT prophylaxis psych eval noted and appreciated started on Risperdal; anemia workup with stable iron, elevated CEA, get stool OB, HH at baseline, monitor clsoely and transfuse prn case discussed and evaluated by supervising physician Subjective Allergies: Coded Allergies: No Known Allergies (Verified Allergy, Unknown, 09/08/09) Subjective no signs of respiratory distress creat down to 1.4 denies chest pain, SOB<, palpitations Objective Last 24 Hour Vital Signs Date Time Temp Pulse Resp B/P Pulse Ox O2 Delivery O2 Flow Rate FiO2 10/21/16 08:06 70 136/60 10/21/16 08:00 97.5 67 18 130/68 95 Room Air 10/21/16 08:00 71 18 Room Air 10/21/16 04:00 99.0 76 20 129/75 96 Room Air 10/21/16 00:48 99.1 67 18 143/69 94 Room Air 10/20/16 20:40 75 18 Room Air 10/20/16 19:24 98.2 64 19 154/61 92 Room Air 10/20/16 16:00 98.4 64 18 141/53 99 Room Air Intake and Output 10/20/16 10/21/16 19:00 07:00 Intake Total 735 ml Balance 735 ml Intake Oral 360 ml IV Total 375 ml # Voids 2 2 General Appearance: no acute distress HEENT: normocephalic, atraumatic, anicteric Respiratory/Chest: lungs clear, no respiratory distress, no accessory muscle use Cardiovascular: normal peripheral pulses, normal rate, regular rhythm Abdomen: normal bowel sounds, soft, non tender - obese, non distended Extremities: no edema, pedal pulses normal Neurologic/Psychiatric: abnormal gait - unsteady , alert, responsive Musculoskeletal: atrophy - BLE Microbiology Date/Time Source Procedure Growth Status 10/19/16 17:40 Nasal Nares MRSA Culture - Final NO METHICILLIN RESISTANT STAPH AUREUS... Complete 10/19/16 17:40 Rectum VRE Culture - Final NO VANCOMYCIN RESISTANT ENTEROCOCCUS ... Complete Laboratory Tests 10/21/16 05:40: White Blood Count 4.3L, Red Blood Count 3.17L, Hemoglobin 9.9L, Hematocrit 31.3L , Mean Corpuscular Volume 99, Mean Corpuscular Hemoglobin 31.1H, Mean Corpuscular Hemoglobin Concent 31.6L, Red Cell Distribution Width 13.1, Platelet Count 192, Mean Platelet Volume 8.0, Neutrophils (%) (Auto) 49.8, Lymphocytes (%) (Auto) 32.3, Monocytes (%) (Auto) 12.2H, Eosinophils (%) (Auto) 4.4H, Basophils (%) (Auto) 1.3, Differential Total Cells Counted 100, Neutrophils % (Manual) 52, Lymphocytes % (Manual) 35, Monocytes % (Manual) 12H, Eosinophils % (Manual) 1, Basophils % (Manual) 0, Band Neutrophils 0, Platelet Estimate Adequate, Platelet Morphology Normal, Hypochromasia 1+, Macrocytosis 1+ , Erythrocyte Sedimentation Rate 45H, Reticulocyte Count 0.4, Prothrombin Time 11.3, Prothromb Time International Ratio 1.1, Activated Partial Thromboplast Time 27, Iron Level 67, Total Iron Binding Capacity 311, Percent Iron Saturation 22, Unsaturated Iron Binding 244, Lactate Dehydrogenase 249H, Carcinoembryonic Antigen 4.6H, Vitamin B12 Level 734, Folate [Pending] Current Medications Medications (Trade) Dose Ordered Sig/Pierre Route PRN Reason Start Time Stop Time Status Last Admin Dose Admin Acetaminophen (Tylenol) 650 mg Q4H PRN ORAL fever 10/19/16 18:15 11/18/16 18:14 Al Hydroxide/Mg Hydroxide (Mylanta II) 30 ml Q6H PRN ORAL dyspepsia 10/19/16 18:15 11/18/16 18:14 Albuterol/ Ipratropium (DuoNeb 0.5-3(2.5)mg/3ml) 3 ml Q6H PRN HHN dyspnea 10/19/16 19:30 10/24/16 19:29 Amlodipine Besylate (Norvasc) 10 mg DAILY ORAL 10/20/16 09:00 11/19/16 08:59 10/21/16 08:06 Aspirin (ASA) 325 mg DAILY ORAL 10/20/16 09:00 11/19/16 08:59 10/21/16 08:05 Atorvastatin Calcium (Lipitor) 20 mg BEDTIME ORAL 10/19/16 21:00 11/18/16 20:59 10/20/16 21:30 Calcium Carbonate (Os-Giovany) 1,250 mg DAILY ORAL 10/20/16 09:00 11/19/16 08:59 10/21/16 08:05 Clonidine HCl (Catapres) 0.1 mg Q4H PRN ORAL SBP > 160 10/19/16 18:15 11/18/16 18:14 Dextrose (Dextrose 50%) STAT PRN IV Hypoglycemia 10/19/16 18:15 11/18/16 18:14 Heparin Sodium (Porcine) (Heparin 5000 units/ml) 5,000 units EVERY 12 HOURS SUBQ 10/19/16 21:00 11/18/16 20:59 Future Hold Insulin Aspart (NovoLOG) BEFORE MEALS AND HS SUBQ 10/19/16 21:00 11/18/16 20:59 10/21/16 06:17 Morphine Sulfate (Morphine Sulfate) 1 mg Q4H PRN IVP For Pain 10/19/16 19:30 10/26/16 19:29 Ondansetron HCl (Zofran) 4 mg Q6H PRN IVP Nausea & Vomiting 10/19/16 18:15 11/18/16 18:14 Polyethylene Glycol (Miralax) 17 gm HSPRN PRN ORAL Constipation 10/19/16 18:15 11/18/16 18:14 Risperidone (RisperDAL) 1 mg Q6H PRN ORAL Agitation 10/19/16 21:15 11/18/16 21:14 Risperidone (RisperDAL) 2 mg BEDTIME ORAL 10/20/16 22:00 11/19/16 21:59 10/20/16 21:28 Zolpidem Tartrate (Ambien) 5 mg HSPRN PRN ORAL Insomnia 10/19/16 18:15 11/18/16 18:14 10/20/16 02:08 Hung ([facility])Maggi NP October 21, 2016 13:12
[2016-10-21] MEDS ORDERED: LORazepam 0.5mg tab ORAL PRN (13:15)
[2016-10-21 16:00] VITALS: BP 138/72
[2016-10-21 20:00] VITALS: BP 139/59
[2016-10-21] MEDS: Atorvastatin 20mg tab ORAL SCH (20:26)
[2016-10-22 00:11] VITALS: BP 152/59
[2016-10-22 05:56] LABS: ANION GAP 14 (5-15); CALCIUM 9.2 mg/dL (8.6-10.2); CARBON DIOXIDE 26 mEQ/L (20-30); CHLORIDE 103 mEQ/L (98-107); CREATININE 1.1 mg/dL (0.5-0.9); HEMOLYSIS 0; POTASSIUM 3.6 mEQ/L (3.4-4.9); SODIUM 143 mEQ/L (135-145)
[2016-10-22] MEDS: NovoLOG Insulin Flexpen SUBQ SCH ×4 (06:30→21:59)
[2016-10-22 06:32] LABS: AMMONIA 41 umol/L (11-51)
[2016-10-22 06:39] VITALS: BP 158/61
[2016-10-22 07:31] VITALS: BP 164/66
[2016-10-22 11:40] VITALS: BP 143/59
--- NOTE | 2016-10-22 12:23 | Pulmonology Progress Note ---
Assessment/Plan Assessment/Plan ASSESSMENT ATN anemia of chronic disease DM progressive ischemic cerebrovascular disease vascular dementia HTN Hyperlipidemia Hyperkalemia-s/p Rx moderate pulmonary HTN diastolic dysfunction PLAN OF CARE MS floor sitter at the bedside CT head negative neuro eval noted and appreciated B12, TSH, ammonia WNL, folate pending PT/OT ambulate fall precautions per neuro limit sedation nephro follows creat down to 1.1, likely prerenal due to dehydration ( s/p IVF) continue ASA lipid panel with elevated TC and LDL, elevated CK, will hold on statin for now BP management with CCB, stable CXR with mild CHF, pro BNP -325 last ECHO with EF 70% and RVSP of 42 c/w moderate pulmonary HTN, evidence of significant diastolic dysfunction, K stable after Rx DVT prophylaxis psych follows continue Risperdal as per psych ; anemia workup with stable iron, elevated CEA, get stool OB, HH at baseline, monitor closely and transfuse prn case discussed and evaluated by supervising physician Subjective Allergies: Coded Allergies: No Known Allergies (Verified Allergy, Unknown, 09/08/09) Subjective no signs of respiratory distress creat down to 1.1 denies chest pain, SOB, palpitations Objective Last 24 Hour Vital Signs Date Time Temp Pulse Resp B/P Pulse Ox O2 Delivery O2 Flow Rate FiO2 10/22/16 11:40 97.1 61 18 143/59 95 Room Air 10/22/16 08:15 62 164/66 10/22/16 07:52 68 18 Room Air 10/22/16 07:31 97.7 67 18 164/66 94 Room Air 10/22/16 06:39 98.4 71 18 158/61 96 Room Air 10/22/16 00:11 99.9 76 20 152/59 93 Room Air 10/21/16 20:00 98.6 70 18 139/59 93 Room Air 10/21/16 17:02 66 18 Room Air 10/21/16 16:00 98.4 73 18 138/72 96 Intake and Output 10/21/16 10/22/16 19:00 07:00 Intake Total 970 ml 120 ml Balance 970 ml 120 ml Intake Oral 970 ml 120 ml # Voids 4 1 # Bowel Movements 1 Objective General Appearance: no acute distress HEENT: normocephalic, atraumatic, anicteric Respiratory/Chest: lungs clear, no respiratory distress, no accessory muscle use Cardiovascular: normal peripheral pulses, normal rate, regular rhythm Abdomen: normal bowel sounds, soft, non tender - obese, non distended Extremities: no edema, pedal pulses normal Neurologic/Psychiatric: abnormal gait - unsteady , alert, responsive Musculoskeletal: atrophy - BLE Microbiology Date/Time Source Procedure Growth Status 10/19/16 17:40 Nasal Nares MRSA Culture - Final NO METHICILLIN RESISTANT STAPH AUREUS... Complete 10/19/16 17:40 Rectum VRE Culture - Final NO VANCOMYCIN RESISTANT ENTEROCOCCUS ... Complete Laboratory Tests 10/22/16 05:05: Sodium Level 143, Potassium Level 3.6, Chloride Level 103, Carbon Dioxide Level 26, Anion Gap 14, Blood Urea Nitrogen 15, Creatinine 1.1H, Estimat Glomerular Filtration Rate , Glucose Level 111H, Calcium Level 9.2, Ammonia 41 Current Medications Medications (Trade) Dose Ordered Sig/Pierre Route PRN Reason Start Time Stop Time Status Last Admin Dose Admin Acetaminophen (Tylenol) 650 mg Q4H PRN ORAL fever 10/19/16 18:15 11/18/16 18:14 Al Hydroxide/Mg Hydroxide (Mylanta II) 30 ml Q6H PRN ORAL dyspepsia 10/19/16 18:15 11/18/16 18:14 Albuterol/ Ipratropium (DuoNeb 0.5-3(2.5)mg/3ml) 3 ml Q6H PRN HHN dyspnea 10/19/16 19:30 10/24/16 19:29 Amlodipine Besylate (Norvasc) 10 mg DAILY ORAL 10/20/16 09:00 11/19/16 08:59 10/22/16 08:15 Aspirin (ASA) 325 mg DAILY ORAL 10/20/16 09:00 11/19/16 08:59 10/22/16 08:16 Atorvastatin Calcium (Lipitor) 20 mg BEDTIME ORAL 10/19/16 21:00 11/18/16 20:59 10/21/16 20:26 Calcium Carbonate (Os-Giovany) 1,250 mg DAILY ORAL 10/20/16 09:00 11/19/16 08:59 10/22/16 08:16 Clonidine HCl (Catapres) 0.1 mg Q4H PRN ORAL SBP > 160 10/19/16 18:15 11/18/16 18:14 Dextrose (Dextrose 50%) STAT PRN IV Hypoglycemia 10/19/16 18:15 11/18/16 18:14 Heparin Sodium (Porcine) (Heparin 5000 units/ml) 5,000 units EVERY 12 HOURS SUBQ 10/19/16 21:00 11/18/16 20:59 Future Hold Insulin Aspart (NovoLOG) BEFORE MEALS AND HS SUBQ 10/19/16 21:00 11/18/16 20:59 10/21/16 20:31 Lorazepam (Ativan) 0.5 mg TIDPRN PRN ORAL For Anxiety 10/21/16 13:15 10/28/16 13:14 10/22/16 08:16 Morphine Sulfate (Morphine Sulfate) 1 mg Q4H PRN IVP For Pain 10/19/16 19:30 10/26/16 19:29 Ondansetron HCl (Zofran) 4 mg Q6H PRN IVP Nausea & Vomiting 10/19/16 18:15 11/18/16 18:14 Polyethylene Glycol (Miralax) 17 gm HSPRN PRN ORAL Constipation 10/19/16 18:15 11/18/16 18:14 Risperidone (RisperDAL) 1 mg Q6H PRN ORAL Agitation 10/19/16 21:15 11/18/16 21:14 Risperidone (RisperDAL) 2 mg BEDTIME ORAL 10/20/16 22:00 11/19/16 21:59 10/21/16 20:26 Zolpidem Tartrate (Ambien) 5 mg HSPRN PRN ORAL Insomnia 10/19/16 18:15 11/18/16 18:14 10/20/16 02:08 Hung BoldenMaggi ness NP October 22, 2016 12:22
--- NOTE | 2016-10-22 14:50 | Cardiology Report ---
APPROVED REPORT EKG Measurement Heart [id number] Sinus rhythm with premature atrial complexes in a pattern of bigeminy Otherwise normal ECG
[2016-10-22 15:32] VITALS: BP 142/57
[2016-10-22 20:00] VITALS: BP 163/75
[2016-10-22] MEDS: Atorvastatin 20mg tab ORAL SCH (21:59)
[2016-10-23] VITALS (8 sets, daily range): BP systolic 136–169; BP diastolic 59–76
[2016-10-23] MEDS: NovoLOG Insulin Flexpen SUBQ SCH ×4 (06:59→21:00)
[2016-10-23 07:45] LABS: BASOPHILS % (AUTO) 1.1 % (0.0-2.0); EOSINOPHILS % (AUTO) 4.4 % (0.0-3.0); LYMPHOCYTES % (AUTO) 42.3 % (20.0-45.0); MEAN CORPUSCULAR HEMOGLOBIN 31.3 PG (27.0-31.0); MEAN CORPUSCULAR HGB CONC 32.4 G/DL (32.0-36.0); MEAN CORPUSCULAR VOLUME 96 FL (80-99); MEAN PLATELET VOLUME 7.8 FL (6.5-10.1); MONOCYTES % (AUTO) 15.5 % (1.0-10.0); NEUTROPHILS % (AUTO) 36.7 % (45.0-75.0); PLATELET COUNT 193 K/UL (150-450); RED BLOOD COUNT 3.22 M/UL (4.20-5.40); RED CELL DISTRIBUTION WIDTH 12.6 % (11.6-14.8); WHITE BLOOD COUNT 4.3 K/UL (4.8-10.8)
[2016-10-23 08:21] LABS: ANION GAP 14 (5-15); CALCIUM 9.3 mg/dL (8.6-10.2); CARBON DIOXIDE 25 mEQ/L (20-30); CHLORIDE 106 mEQ/L (98-107); CREATININE 0.9 mg/dL (0.5-0.9); HEMOLYSIS 1; POTASSIUM 3.9 mEQ/L (3.4-4.9); SODIUM 145 mEQ/L (135-145)
[2016-10-23] MEDS: Atorvastatin 20mg tab ORAL SCH (21:19)
[2016-10-23] MEDS: Zolpidem 5mg tab ORAL PRN (21:20)
--- NOTE | 2016-10-23 21:22 | Geriatric Progress Note ---
Assessment/Plan Problems: (1) Dementia (2) Dehydration Assessment/Plan Patient with moderately advanced dementia - reports she recognizes examiner after significant lapse in contact. History of delusions/paranoia centered around TV characters and small children coming into her home. Physical issues currently stabilized with reported good intake. Discussed d/c issues with son. Will review with d/c planning. Would avoid excessive antipsychotic or benzodiazepine tx is possible, since it is likely to worsen confusion and gait instability. Might benefit from trial of Nuedexta or Nuplazid in future. Will review old records re prior medication regimen. Dictated # Discussed with: patient, family, hospital staff Subjective Interval Events Asked to see patient who has recently been lost to f/u due to placement issues and hospitalizations. Spoke with son Raghavendra who is surrogate. Patient recently has been at a [facility] which he feels does not have sufficient structure and supervision, leading to increased disorientation and weakness. Patient apparently has been labelled as schizophrenic, but has not history of schizophrenia. She has exhibited paranoia and delusions associated with her dementia, but is generally calm when in a structured situation. Patient reportedly hospitalized at [facility] for UTI and AMS recently. After d/c became weak, and was hospitalized at [facility] for FTT. W/u only revealed KAJAL which has resolved with hydration. Patient has been managed on Ativan prn, and addition of Risperdal. Patient recognizes examiner, and denies c/o. Son reports that beside deconditioning and decreased endurance he is unaware of any specific issues. Constitutional: Denies: chills, fever, pain, sweats Respiratory: Denies: shortness of breath Cardiovascular: Denies: chest pain, palpitations Gastrointestinal/Abdominal: Denies: abdominal pain Genitourinary: Denies: dysuria Musculoskeletal: Denies: back pain Geriatric Geriatric Last 24 Hour Vital Signs Date Time Temp Pulse Resp B/P Pulse Ox O2 Delivery O2 Flow Rate FiO2 10/23/16 20:00 98.1 65 20 159/61 92 Room Air 10/23/16 19:30 70 20 Room Air 21 10/23/16 16:15 99.7 75 20 137/76 95 Room Air 10/23/16 16:00 99.7 75 18 137/76 95 Room Air 10/23/16 12:15 96.4 66 21 136/60 94 Room Air 10/23/16 12:00 96.4 66 18 136/60 94 Room Air 10/23/16 08:29 75 160/74 10/23/16 08:00 96.9 75 17 160/74 98 Room Air 10/23/16 07:37 69 18 Room Air 10/23/16 04:00 96.6 58 20 149/59 100 Room Air 10/23/16 00:00 98.1 60 20 169/69 94 Room Air Intake and Output 10/22/16 10/23/16 19:00 07:00 Intake Total 990 ml Balance 990 ml Intake Oral 990 ml # Voids 4 2 # Bowel Movements 1 1 Laboratory Tests Test 10/23/16 07:20 White Blood Count 4.3 K/UL (4.8-10.8) L Red Blood Count 3.22 M/UL (4.20-5.40) L Hemoglobin 10.1 G/DL (12.0-16.0) L Hematocrit 31.1 % (37.0-47.0) L Mean Corpuscular Volume 96 FL (80-99) Mean Corpuscular Hemoglobin 31.3 PG (27.0-31.0) H Mean Corpuscular Hemoglobin Concent 32.4 G/DL (32.0-36.0) Red Cell Distribution Width 12.6 % (11.6-14.8) Platelet Count 193 K/UL (150-450) Mean Platelet Volume 7.8 FL (6.5-10.1) Neutrophils (%) (Auto) 36.7 % (45.0-75.0) L Lymphocytes (%) (Auto) 42.3 % (20.0-45.0) Monocytes (%) (Auto) 15.5 % (1.0-10.0) H Eosinophils (%) (Auto) 4.4 % (0.0-3.0) H Basophils (%) (Auto) 1.1 % (0.0-2.0) Sodium Level 145 mEQ/L (135-145) Potassium Level 3.9 mEQ/L (3.4-4.9) Chloride Level 106 mEQ/L (98-107) Carbon Dioxide Level 25 mEQ/L (20-30) Anion Gap 14 (5-15) Blood Urea Nitrogen 12 mg/dL (7-23) Creatinine 0.9 mg/dL (0.5-0.9) Estimat Glomerular Filtration Rate mL/min (>60) Glucose Level 95 mg/dL (74-106) Calcium Level 9.3 mg/dL (8.6-10.2) Current Medications Medications (Trade) Dose Ordered Sig/Pierre Route PRN Reason Start Time Stop Time Status Last Admin Dose Admin Acetaminophen (Tylenol) 650 mg Q4H PRN ORAL fever 10/19/16 18:15 11/18/16 18:14 Al Hydroxide/Mg Hydroxide (Mylanta II) 30 ml Q6H PRN ORAL dyspepsia 10/19/16 18:15 11/18/16 18:14 Albuterol/ Ipratropium (DuoNeb 0.5-3(2.5)mg/3ml) 3 ml Q6H PRN HHN dyspnea 10/19/16 19:30 10/24/16 19:29 Amlodipine Besylate (Norvasc) 10 mg DAILY ORAL 10/20/16 09:00 11/19/16 08:59 10/23/16 08:29 Aspirin (ASA) 325 mg DAILY ORAL 10/20/16 09:00 11/19/16 08:59 10/23/16 08:29 Atorvastatin Calcium (Lipitor) 20 mg BEDTIME ORAL 10/19/16 21:00 11/18/16 20:59 10/22/16 21:59 Calcium Carbonate (Os-Giovany) 1,250 mg DAILY ORAL 10/20/16 09:00 11/19/16 08:59 10/23/16 08:29 Clonidine HCl (Catapres) 0.1 mg Q4H PRN ORAL SBP > 160 10/19/16 18:15 11/18/16 18:14 Dextrose (Dextrose 50%) STAT PRN IV Hypoglycemia 10/19/16 18:15 11/18/16 18:14 Heparin Sodium (Porcine) (Heparin 5000 units/ml) 5,000 units EVERY 12 HOURS SUBQ 10/19/16 21:00 11/18/16 20:59 Future Hold Insulin Aspart (NovoLOG) BEFORE MEALS AND HS SUBQ 10/19/16 21:00 11/18/16 20:59 10/22/16 17:06 Lorazepam (Ativan) 0.5 mg TIDPRN PRN ORAL For Anxiety 10/21/16 13:15 10/28/16 13:14 10/22/16 08:16 Morphine Sulfate (Morphine Sulfate) 1 mg Q4H PRN IVP For Pain 10/19/16 19:30 10/26/16 19:29 Ondansetron HCl (Zofran) 4 mg Q6H PRN IVP Nausea & Vomiting 10/19/16 18:15 11/18/16 18:14 Polyethylene Glycol (Miralax) 17 gm HSPRN PRN ORAL Constipation 10/19/16 18:15 11/18/16 18:14 Risperidone (RisperDAL) 1 mg Q6H PRN ORAL Agitation 10/19/16 21:15 11/18/16 21:14 Risperidone (RisperDAL) 2 mg BEDTIME ORAL 10/20/16 22:00 11/19/16 21:59 10/22/16 21:59 Zolpidem Tartrate (Ambien) 5 mg HSPRN PRN ORAL Insomnia 10/19/16 18:15 11/18/16 18:14 10/20/16 02:08 Height (Feet): 5 Height (Inches): 2.00 Weight (Pounds): 215 General Appearance: no apparent distress, alert Head: normocephalic, atraumatic Eyes: bilateral anicteric ENT: normal voice, other - edentulous Neck: full range of motion, no mass Respiratory: lungs clear Cardiovascular: regular rate, rhythm, systolic murmur Gastrointestinal: normal bowel sounds, non tender, soft, no mass, no organomegaly, non-distended Musculoskeletal: no calf tenderness Edema: no edema noted Generalized Neurologic: motor strength/tone normal, other Neurologic: Romberg - mild sway, gait/balance - slightly broadbased and rocking TERI RHODES October 23, 2016 21:22
--- NOTE | 2016-10-23 22:49 | Pulmonology Progress Note ---
Assessment/Plan Problems: (1) ATN (acute tubular necrosis) (2) Severe anemia (3) Dementia (4) Diabetes (5) Schizophrenia Assessment/Plan improving all consults reviewed pt/ot dc planning Subjective ROS Limited/Unobtainable: No Interval Events: awake, comfortable Allergies: Coded Allergies: No Known Allergies (Verified Allergy, Unknown, 09/08/09) Objective Last 24 Hour Vital Signs Date Time Temp Pulse Resp B/P Pulse Ox O2 Delivery O2 Flow Rate FiO2 10/23/16 20:00 98.1 65 20 159/61 92 Room Air 10/23/16 19:30 70 20 Room Air 21 10/23/16 16:15 99.7 75 20 137/76 95 Room Air 10/23/16 16:00 99.7 75 18 137/76 95 Room Air 10/23/16 12:15 96.4 66 21 136/60 94 Room Air 10/23/16 12:00 96.4 66 18 136/60 94 Room Air 10/23/16 08:29 75 160/74 10/23/16 08:00 96.9 75 17 160/74 98 Room Air 10/23/16 07:37 69 18 Room Air 10/23/16 04:00 96.6 58 20 149/59 100 Room Air 10/23/16 00:00 98.1 60 20 169/69 94 Room Air Intake and Output 10/22/16 10/23/16 19:00 07:00 Intake Total 990 ml Balance 990 ml Intake Oral 990 ml # Voids 4 2 # Bowel Movements 1 1 General Appearance: WD/WN HEENT: normocephalic, atraumatic Respiratory/Chest: chest wall non-tender Cardiovascular: normal peripheral pulses Abdomen: normal bowel sounds, no organomegaly Genitourinary: normal external genitalia Extremities: no cyanosis Laboratory Tests 10/23/16 07:20: White Blood Count 4.3L, Red Blood Count 3.22L, Hemoglobin 10.1L, Hematocrit 31.1L, Mean Corpuscular Volume 96, Mean Corpuscular Hemoglobin 31.3H, Mean Corpuscular Hemoglobin Concent 32.4, Red Cell Distribution Width 12.6, Platelet Count 193, Mean Platelet Volume 7.8, Neutrophils (%) (Auto) 36.7L, Lymphocytes ( %) (Auto) 42.3, Monocytes (%) (Auto) 15.5H, Eosinophils (%) (Auto) 4.4H, Basophils (%) (Auto) 1.1, Sodium Level 145, Potassium Level 3.9, Chloride Level 106, Carbon Dioxide Level 25, Anion Gap 14, Blood Urea Nitrogen 12, Creatinine 0.9, Estimat Glomerular Filtration Rate , Glucose Level 95, Calcium Level 9.3 Current Medications Medications (Trade) Dose Ordered Sig/Pierre Route PRN Reason Start Time Stop Time Status Last Admin Dose Admin Acetaminophen (Tylenol) 650 mg Q4H PRN ORAL fever 10/19/16 18:15 11/18/16 18:14 Al Hydroxide/Mg Hydroxide (Mylanta II) 30 ml Q6H PRN ORAL dyspepsia 10/19/16 18:15 11/18/16 18:14 Albuterol/ Ipratropium (DuoNeb 0.5-3(2.5)mg/3ml) 3 ml Q6H PRN HHN dyspnea 10/19/16 19:30 10/24/16 19:29 Amlodipine Besylate (Norvasc) 10 mg DAILY ORAL 10/20/16 09:00 11/19/16 08:59 10/23/16 08:29 Aspirin (ASA) 325 mg DAILY ORAL 10/20/16 09:00 11/19/16 08:59 10/23/16 08:29 Atorvastatin Calcium (Lipitor) 20 mg BEDTIME ORAL 10/19/16 21:00 11/18/16 20:59 10/23/16 21:19 Calcium Carbonate (Os-Giovany) 1,250 mg DAILY ORAL 10/20/16 09:00 11/19/16 08:59 10/23/16 08:29 Clonidine HCl (Catapres) 0.1 mg Q4H PRN ORAL SBP > 160 10/19/16 18:15 11/18/16 18:14 Dextrose (Dextrose 50%) STAT PRN IV Hypoglycemia 10/19/16 18:15 11/18/16 18:14 Heparin Sodium (Porcine) (Heparin 5000 units/ml) 5,000 units EVERY 12 HOURS SUBQ 10/19/16 21:00 11/18/16 20:59 Future Hold Insulin Aspart (NovoLOG) BEFORE MEALS AND HS SUBQ 10/19/16 21:00 11/18/16 20:59 10/22/16 17:06 Lorazepam (Ativan) 0.5 mg TIDPRN PRN ORAL For Anxiety 10/21/16 13:15 10/28/16 13:14 10/22/16 08:16 Morphine Sulfate (Morphine Sulfate) 1 mg Q4H PRN IVP For Pain 10/19/16 19:30 10/26/16 19:29 Ondansetron HCl (Zofran) 4 mg Q6H PRN IVP Nausea & Vomiting 10/19/16 18:15 11/18/16 18:14 Polyethylene Glycol (Miralax) 17 gm HSPRN PRN ORAL Constipation 10/19/16 18:15 11/18/16 18:14 Risperidone (RisperDAL) 1 mg Q6H PRN ORAL Agitation 10/19/16 21:15 11/18/16 21:14 Risperidone (RisperDAL) 2 mg BEDTIME ORAL 10/20/16 22:00 11/19/16 21:59 10/23/16 21:19 Zolpidem Tartrate (Ambien) 5 mg HSPRN PRN ORAL Insomnia 10/19/16 18:15 11/18/16 18:14 10/23/16 21:20 ANTON BYRD October 23, 2016 22:49
[2016-10-24] VITALS: BP 139/67
[2016-10-24 04:00] VITALS: BP 146/64
[2016-10-24] MEDS: NovoLOG Insulin Flexpen SUBQ SCH ×2 (06:29→11:03)
[2016-10-24 08:00] VITALS: BP 141/60
[2016-10-24 12:00] VITALS: BP 133/59
--- NOTE | 2016-10-24 23:46 | Pulmonology Progress Note ---
Assessment/Plan Problems: (1) ATN (acute tubular necrosis) (2) Severe anemia (3) Dementia (4) Diabetes (5) Schizophrenia Assessment/Plan improving all consults reviewed pt/ot dc planning Subjective Allergies: Coded Allergies: No Known Allergies (Verified , 09/08/09) Objective Last 24 Hour Vital Signs Date Time Temp Pulse Resp B/P Pulse Ox O2 Delivery O2 Flow Rate FiO2 10/24/16 12:00 97.0 17 133/59 96 Room Air 10/24/16 09:41 61 141/60 10/24/16 08:00 96.8 16 141/60 94 10/24/16 07:41 72 20 Room Air 21 10/24/16 04:00 97.3 58 20 146/64 93 Room Air 10/24/16 00:00 97.9 63 20 139/67 91 Room Air Intake and Output 10/23/16 10/24/16 19:00 07:00 Intake Total 1180 ml 120 ml Balance 1180 ml 120 ml Intake Oral 1180 ml 120 ml # Voids 3 1 ANTON BYRD October 24, 2016 23:46
--- NOTE | 2016-10-26 10:38 | Discharge Summary ---
Discharge Summary Hospital Course Date of Admission October 19, 2016 at 16:54 Date of Discharge October 24, 2016 at 15:40 Admitting Diagnosis weakness/FAILURE TO THRIVE HPI Yuki Johnson is a 86 year old female who was admitted on October 19, 2016 at 16: 54 for Weakness/Failure To Thrive Hospital Course [id number] Discharge Discharge Disposition Patient was discharged to SNF/Subacute Facility(03) Discharge Diagnoses: Radha Flaherty NP October 26, 2016 10:38
--- NOTE | 2016-10-26 22:33 | Discharge Summary 2 SIG ---
DATE OF ADMISSION: 10/19/2016 DATE OF DISCHARGE: 10/24/2016 CONSULTANTS: 1. Fan Lowe M.D. 2. Shawn Marino M.D. 3. Rigo Villanueva M.D. BRIEF HOSPITAL COURSE: The patient is an 86-year-old female with history of schizophrenia, dementia, and diabetes mellitus, presented to ED for evaluation of increased weakness and failure to thrive. The patient has a very decreased appetite and is not eating or drinking. On evaluation, labs showed no leukocytosis with BUN and creatinine elevated to 1.7. Potassium was 5.3. Troponin was negative. Chest x-ray done showed no acute process and EKG showed no acute ischemic changes. The patient is confused and got up from bed and fell. CT of the head showed no acute process. She was then admitted for further workup and was provided a sitter for patient safety. Dr. Marino was consulted and assessed that the patient has progressive ischemic cerebrovascular disease presenting with abnormal gait and evidence of vascular dementia. She was continued on aspirin and Aricept. Dr. Lowe was consulted for psychiatric evaluation as the patient was disorganized and agitated. She was diagnosed with schizophrenia and was given Risperdal 2 mg q.h.s. She was also seen by Dr. Rigo Villanueva. The patient has a history of delusions/paranoia, which was centered around TV characters and small children come into home. Recommend to avoid excessive antipsychotics or benzodiazepines since this would likely worsen confusion and gait instability. She underwent physical therapy and occupational therapy, assessment and treatment and was eventually discharged. The patient was discharged to SNF. FINAL DIAGNOSES: 1. Acute kidney injury with acute tubular necrosis. 2. Dementia. 3. Schizophrenia. 4. Anemia. 5. Diabetes mellitus. 6. Vascular dementia. 7. Hyperlipidemia. 8. Chronic anemia. 9. Hyperkalemia. 10. Moderate pulmonary hypertension with diastolic dysfunction. Lalito Oviedo M.D. I have been assigned to dictate discharge summary on this account and I was not involved in the patient's management. Radha Flaherty N.P. DR: JONNATHAN JOB#: [id number] CC:
== END 2016-10-24 15:40 | DRG 683 ==
LOC: EMR 16:48 → 4E 16:54 → EDBEDREQ 17:08 → 4E 21:05
DX: N17.0 Acute kidney failure with tubular necrosis (principal); I67.89 Other cerebrovascular disease; I27.2 Other secondary pulmonary hypertension; E87.5 Hyperkalemia; F03.90 Unspecified dementia, unspecified severity, without behavioral disturbance, psychotic disturbance, mood disturbance, and anxiety; R62.7 Adult failure to thrive; E86.0 Dehydration; I10 Essential (primary) hypertension; E78.5 Hyperlipidemia, unspecified; F20.9 Schizophrenia, unspecified; R41.0 Disorientation, unspecified; E11.9 Type 2 diabetes mellitus without complications; R27.0 Ataxia, unspecified; N18.9 Chronic kidney disease, unspecified; F01.50 Vascular dementia, unspecified severity, without behavioral disturbance, psychotic disturbance, mood disturbance, and anxiety; D63.8 Anemia in other chronic diseases classified elsewhere; R07.9 Chest pain, unspecified
CPT/HCPCS: 36415; 70450; 71010; 80048; 80053; 80061; 82140; 82378; 82550; 82553; 82607; 82746; 82962; 83036; 83540; 83550; 83615; 83880; 84443; 84484; 85007; 85025; 85044; 85060; 85610; 85651; 85730; 87081; 93005; 94664; J1815